=== PATIENT | male | born 1955 | race Caucasian/White ===

== ENCOUNTER 2022-04-27 14:25 | Outpatient (CLI) | payer BC, SELFPAY ==
[2022-04-27 13:21] LABS: Chloride* 104 mmol/L (96-114)
[2022-04-27 13:22] LABS: Potassium* 4.3 mmol/L (3.6-5.1); Sodium* 135 mmol/L (135-149)
[2022-04-27 13:24] LABS: Alkaline Phosphatase* 33 U/L (40-150); Aspartate Amino Transferase* 24 U/L (12-35); Blood Urea Nitrogen* 15 mg/dL (7-30); Carbon Dioxide* 27 mmol/L (20-32); Cholesterol* 148 mg/dL (90-199); Creatinine* 0.8 mg/dL (0.5-1.5); Estimated Glomerular Filt Rate 98.83; Glucose* 105 mg/dL (60-115); Total Protein* 6.2 g/dL (6.0-8.3); Triglycerides* 65 mg/dL (40-149)
[2022-04-27 13:25] LABS: Alanine Aminotransferase* 23 U/L (4-50); Calcium* 8.8 mg/dL (8.4-10.6); HDL Cholesterol* 66 mg/dL (>=40); LDL Cholesterol Calculated 69 mg/dL (<100)
[2022-04-27 13:46] LABS: Vitamin D 25 Hydroxy* 31 ng/mL (30-80)
[2022-05-03 17:18] LABS: PSA Screen* 0.52 ng/mL (0.10-4.00)
[2022-05-03 17:22] LABS: Ferritin* 11.8 ng/mL (17.9-464.0)
[2022-05-03 17:37] LABS: Vitamin B12* 386 pg/mL (243-894)
== END 2022-04-27 14:26 | disposition home or self-care (01) ==
PROVIDERS: PCP Family Medicine; Visit Provider Family Medicine
DX: Z00.00 Encounter for general adult medical examination without abnormal findings (principal); E55.9 Vitamin D deficiency, unspecified; I10 Essential (primary) hypertension; D64.9 Anemia, unspecified; F41.9 Anxiety disorder, unspecified; N52.9 Male erectile dysfunction, unspecified; Z79.1 Long term (current) use of non-steroidal anti-inflammatories (NSAID)
CPT/HCPCS: 80053; 80061; 82306; 82607; 82728; 84153

== ENCOUNTER 2022-07-23 14:19 | Outpatient (CLI) | payer BC, SELFPAY ==
--- OUTSIDE RECORDS SUMMARY | 2022-07-23 10:00 | XMS_ITS | Clinical Summary ---
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 docosahexanoic Take 1 capsule by 0 12/26/2011 Active acid-eicosapent mouth once daily. (MAXEPA; FISH OIL) capsule multivitamin (MVI) Take 1 tablet by 0 03/05/2013 Active tablet mouth once daily. turmeric root extract Take 1,000 mg by 0 06/03/2018 Active 500 mg cap mouth once daily. Garlic cap Take 1 capsule by 0 06/03/2018 Active mouth 2 times daily. Kyolic; 600 mg. rosuvastatin (CRESTOR) Take 1 tablet by 90 tablet 3 06/03/2018 Active 20 mg mouth at bedtime. tabletIndications: Hyperlipidemia, unspecified hyperlipidemia type lisinopriL (PRINIVIL; Take 0.5 Tablets 0 02/23/2021 Active ZESTRIL) 20 mg tablet (10 mg) by mouth once daily. tadalafiL (CIALIS) 5 Take by mouth once 0 10/31/2020 Active mg tablet daily. aspirin enteric coated Take 1 Tablet (325 90 Tablet 3 02/24/20 21 Active (ECOTRIN) 325 mg mg) by mouth once tabletIndications: daily with a meal. Coronary artery disease involving [place] and [place] coronary artery, unspecified whether angina present, unspecified whether [place] and [place] or transplanted heart Active Problems Problem Noted Date Sensorineural hearing loss, bilateral 04/07/2018 Personal history of colonic polyps 12/22/2013 Overview: Colonoscopy 11/2013 hyperplastic polyp re peat in 5 years Tachycardia, unspecified 11/23/2011 Arrhythmia 11/23/2011 Palpitations 11/23/2011 ABNORMAL CTA, 10/27 Overview: CALCIUM SCORE 375= 95TH PERCENTILE STRESS ECHO 10/27: 1. Exercise tolerance is 13:06 on the Br uce protocol to a peak HR of 105% predicted and a peak blood pressure of 192. 2. Symptoms of fatigue. 3. Resting 12 Lead ECG: Sinus rhythm, ri ght axis deviation and nonspecific conduction delay. 4. Stress ECG: No significant ST change. 5. Rest perfusion: normal. 6. Stress perfusion: normal. 7. LVEF normal at 59% HYPERLIPIDEMIA, MILD CAD (coronary artery disease) Overview: -CT coronary angiogram showing non-obst ructive CAD 10/2006 -Myocardial perfusion scan 11/14/2011 no rmal Atrial fibrillation Overview: -Fall 2010 paroxysms of afib with assoc iated fatigue and exercise intolerance -Flecainide ineffective and lower doses and not tolerated at higher doses -05/20/2012 complex afib/flutter ablatio n with Dr. Shepherd -05/26/2012, recurrent arrhythmia startin g 05/25/2012, presents for DCCV -s/p complex radiofrequency ablation fo r atrial fibrillation 09/30/2012 Encounters Date Type Specialty Care Team Description 05/03/2022 Telephone Noe Aranda [facility] Hearing Aid 05/01/2022 Office Visit Noe Ar[facility] 05/01/2022 Travel from Last 3 Months Family History Medical History Relation Name Comments Hyperlipidemia Brother 1 Hypertension Brother 2 Heart Disease Father [place] at age 65-70, of liver disease at age 74 Heart Disease Mother 7-8 stents, vasc ular surgery, mild [place], atrial fib Good Health Son x3 Relation Name Status Comments Brother 1 Brother 2 Father Mother Son Social History Tobacco Use Types Packs/Day Years Used Date Never Smoker Smokeless Tobacco: Never Used Tobacco Cessation: Counseling Given: Yes Alcohol Use Standard Drinks/Week Comments Yes 0 (1 standard drink = 0.6 oz pure alcoho l) 2-3 glasses of wine daily Alcohol Habits Answer Date Recorded How often do you have a drink containing Not asked alcohol? How many drinks containing alcohol do you Not asked have on a typical day when you are drinking? How often do you have six or more drinks on Not asked one occasion? 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 Respiratory Rate 16 06/03/2018 9:52 AM CDT Oxygen Saturation 98% 02/23/2021 8:57 AM CDT Inhaled Oxygen Concentration - - Weight 101.9 kg (224 lb 9.6 oz) 02/23/2021 8:57 AM CDT Height 182.9 cm (6') 02/23/2021 8:57 AM CDT Body Mass Index 30.46 02/23/2021 8:57 AM CDT Plan of Treatment Health Maintenance Due Date Last Done Comments COVID-19 vaccine series (#1) [birth year]07/1956 Tdap 1968 Depression screening for age 12+ 1969 Hepatitis C screening for age 18-79 1975 Tetanus booster 1977 Zoster (shingles) series for age 50+ (1 of 2007 2) Lipids for age 45-75 03/09/2013 03/09/2008 Colonoscopy through age 75 12/15/2018 12/15/2013, 4 BMI (ht and wt on same day) for age 18+ 02/23/2022 02/24/20 21, 06/03/2018 Influenza for age 65+ 2022 Pneumococcal series for age 65+ (1 - PCV) 2022 Results Not on filefrom Last 3 Months Insurance Payer Benefit Plan / Subscriber ID Effective Dates Phone Addre ss Type Group [employer]UE [employer] [place] [id number] 2016-Present [address] [place] [address] (Work) [id number] [address] [employer] 1955 [id number] [phone] [place], [place] (Work) [phone] Advance Directives Latest Code Status on File Code Status Date Activated Date Inactivated Comments Full Code 09/30/2012 6:58 AM 10/01/2012 12:59 PM Full Code 09/01/2012 8:15 AM 09/01/2012 8:04 PM Full Code 08/14/2012 1:41 PM 08/14/2012 6:34 PM Full Code 05/26/2012 12:48 PM 05/26/2012 6:51 PM Full Code 05/20/2012 6:52 AM 05/21/2012 3:25 PM 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
== END 2022-07-23 14:20 | disposition home or self-care (01) ==
PROVIDERS: PCP Family Medicine; Visit Provider Family Medicine
DX: D64.9 Anemia, unspecified (principal)
CPT/HCPCS: 82728

== ENCOUNTER 2023-06-06 07:32 | Outpatient (CLI) | payer BC, SELFPAY | END 2023-06-06 07:33 | disposition home or self-care (01) | LOC: NFLDREF 11:28 | PROVIDERS: PCP Family Medicine; Referring Provider Family Medicine; Visit Provider Family Medicine | DX: I10 Essential (primary) hypertension (principal); D64.9 Anemia, unspecified; E78.5 Hyperlipidemia, unspecified; E55.9 Vitamin D deficiency, unspecified; Z12.5 Encounter for screening for malignant neoplasm of prostate | CPT/HCPCS: 80053; 80061; 82306; 82728; 84153 ==

== ENCOUNTER 2023-10-01 07:49 | Outpatient (CLI) | payer BC, SELFPAY ==
[2023-10-01 09:27] VITALS: BP 130/72; PULSE 84; RESP 18
--- NOTE | 2023-10-01 13:38 | W.PM.STED ---
Stress Test Note Date Date of test: 10/01/23 Providers Primary care provider: Alisson Mcdonald Stress test physician: Erich Patrick Stress Test Note Stress test ordered: Stress Myoview Indication for test: CAD Results discussion: This pleasant patient presents for the above test after discussion the risks benefits and side effects he would like to proceed. Cardiac stress test medical history form is reviewed entirely. Pretest EKG shows normal sinus rhythm, ventricular rate is 69, blood pressure 102/70. No acute ST wave changes are noted. Normal Romain protocol is employed over a 9 minute. , he achieved a metabolic equivalent of 10.5 Mets. Test is terminated because of mode of call. During this test there was no appreciable ST wave changes suggestive of ischemia. He had no other complaints. Impression: Negative electrographic portion walking Myoview test. Follow up suggested: Await nuclear images clinical correlation with these will be needed. Patient left this testing facility back to baseline, with no complaints.
== END 2023-10-01 07:50 | disposition home or self-care (01) ==
LOC: STRESS 07:49
PROVIDERS: PCP Family Medicine; Visit Provider Family Medicine
DX: I25.10 Atherosclerotic heart disease of native coronary artery without angina pectoris (principal)
CPT/HCPCS: 78452; 93016; 93017; A9500

== ENCOUNTER 2024-01-08 10:50 | Outpatient (REF) | payer BC, SELFPAY ==
[2024-01-08 11:16] LABS: Cholesterol* 128 mg/dL (90-199)
[2024-01-08 11:17] LABS: HDL Cholesterol* 69 mg/dL (>=40); LDL Cholesterol Calculated 46 mg/dL (<100); Triglycerides* 64 mg/dL (40-149)
== END 2024-01-08 10:51 | disposition home or self-care (01) ==
LOC: NPINS 10:50
PROVIDERS: PCP Family Medicine; Visit Provider Internal Medicine
DX: E78.5 Hyperlipidemia, unspecified (principal)
CPT/HCPCS: 80061

== ENCOUNTER 2024-06-18 07:55 | Outpatient (CLI) | payer BC, SELFPAY ==
--- OUTSIDE RECORDS SUMMARY | 2024-06-20 05:36 | XMS_ITS | Clinical Summary ---
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 0 Active docosahexanoic acid-eicosapent (MAXEPA; FISH OIL) capsule Take 1 capsule by mouth once daily. 0 12/26/2011 Active multivitamin (MVI) tablet Take 1 tablet by mouth once daily. 0 03/05/2013 Active Garlic cap Take 1 capsule by mouth 2 times daily. Kyolic; 600 mg. 0 06/03/2018 Active rosuvastatin (CRESTOR) 20 mg tabletIndications:Hy perlipidemia, unspecified hyperlipidemia type Take 1 tablet by mouth at bedtime. 90 tablet 3 06/03/2018 Active tadalafiL (CIALIS) 5 mg tablet Take by mouth once daily. 10/31/2020 Active lisinopriL (PRINIVIL; ZESTRIL) 10 mg tablet Take 1 Tablet (10 mg) by mouth once daily. 10/24/2022 Active ezetimibe (Zetia) 10 mg tabletIndications:Hy perlipidemia, unspecified hyperlipidemia type Take 1 Tablet (10 mg) by mouth once daily. 90 Tablet 3 10/11/2023 Active Eliquis 5 mg tabletIndications:YOANDY F (paroxysmal atrial fibrillation) (HC) TAKE 1 TABLET(5 MG) BY MOUTH TWICE DAILY 180 Tablet 3 10/15/2023 Active semaglutide, weight loss, (Wegovy) 1 mg/0.5 mL subcutaneous penIndications:Obesi ty, unspecified classification, unspecified obesity type, unspecified whether serious comorbidity present,Coronary artery disease, unspecified vessel or lesion type, unspecified whether angina present, unspecified whether [place] or transplanted heart Inject 1 mg subcutaneous once weekly. 2 mL 5 03/20/2024 Active Active Problems Problem Noted Date Diagnosed Date Sensorineural hearing loss, bilateral 04/07/2018 Personal history of colonic polyps 12/22/2013 Overview: Colonoscopy 11/2013 hyperplastic polyp repeat in 5 years Tachycardia, unspecified 11/23/2011 Arrhythmia 11/23/2011 Palpitations 11/23/2011 ABNORMAL CTA, 10/27 Overview: CALCIUM SCORE 375= 95TH PERCENTILE STRESS ECHO 10/27: 1. Exercise tolerance is 13:06 on the Romain protocol to a peak HR of 105% predicted and a peak blood pressure of 192. 2. Symptoms of fatigue. 3. Resting 12 Lead ECG: Sinus rhythm, right axis deviation and nonspecific conduction delay. 4. Stress ECG: No significant ST change. 5. Rest perfusion: normal. 6. Stress perfusion: normal. 7. LVEF normal at 59% HYPERLIPIDEMIA, MILD CAD (coronary artery disease) Overview: -CT coronary angiogram showing non-obstructive CAD 10/2006 -Myocardial perfusion scan 11/14/2011 normal Atrial fibrillation Overview: -Fall 2010 paroxysms of afib with associated fatigue and exercise intolerance -Flecainide ineffective and lower doses and not tolerated at higher doses -05/20/2012 complex afib/flutter ablation with Dr. Shepherd -05/26/2012, recurrent arrhythmia starting 05/25/2012, presents for [facility] -s/p complex radiofrequency ablation for atrial fibrillation 09/30/2012 Family History Medical History Relation Name Comments Hyperlipidemia Brother 1 Hypertension Brother 2 Heart Disease Father [place] at age 65-7 0, of liver disease at age 74 Heart Disease Mother 7-8 stents, va scular surgery, mild [place], atrial fib Good Health Son x3 Relation Name Status Comments Brother 1 Brother 2 Father Mother Son Social History Tobacco Use Types Packs/Day Years Used Date Smoking Tobacco: Never Smokeless Tobacco: Never Tobacco Cessation:Counseling Given: Yes Alcohol Use Standard Drinks/Week Comments Yes 0 (1 standard drink = 0.6 oz pur e alcohol) 2-3 glasses of wine daily Social Connections Answer Date Recorded Frequency of Communication with Friends and Fami ly Not on file 10/21/2021 Financial Resource Strain Answer Date R ecorded Difficulty of Paying Living Expenses Not on file 10/21/2021 Difficulty of Paying Living Expenses Not on file 10/21/2021 Sex and Gender Information Value Date Recorded Sex Assigned at Not on file Gender Identity Not on file Sexual Orientation Not on file Obstetrics History Last Filed Vital Signs Vital Sign Reading Time Taken Comments Blood Pressure 122/80 10/26/2022 8:30 AM 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 VALVER Pulse 76 10/26/2022 8:30 AM [facility]AG [facility] Temperature 36.7 ??C (98.1 ??F) 12/28/2016 2:58 PM CS T Respiratory Rate 16 06/03/2018 9:52 AM CDT Oxygen Saturation 99% 10/26/2022 8:30 AM BAG VALVER Inhaled Oxygen Concentration - - Weight 90.7 kg (200 lb) 04/17/2024 1:00 PM CDT p t reported Height 182.9 cm (6' 0.01) 12/25/2023 11:[address] Body Mass Index 27.12 12/25/2023 11:00 AM BAG [facility] Plan of Treatment Health Maintenance Due Date Last Done Comments Tdap 1968 Depression screening for age 12+ 1969 Hepatitis C screening for ag e 18-79 1975 Tetanus booster 1977 Zoster (shingles) series for age 50+ (1 of 2) 2007 Colonoscopy through age 75 12/15/2018 12/15/2013, Pneumococcal series for age 65+ (1 of 1 - PCV) 2022 COVID-19 vaccine series (2022- season) 2023 08/14/2023, 07/27/2022, 05/07/2022, Additional history exists Influenza for age 65+ 06/21/2024 BMI (ht and wt on same day) for age 18+ 12/24/2024 12/25/2023, 10/26/2022, 02/23/2021, Additional history exists Lipids for age 45-75 01/07/2029 01/08/2024, 03/09/20 08 Procedures Procedure Name Priority Date/Time Associated Diagnosis Comments LIPID PANEL Routine 01/08/2024 Hyperlipidemia, unspecified hyperlipidemia type from Last 3 Months or Most Recently Relevant to Health Maintenance Results * LIPID PANEL (01/08/2024) CHOLESTEROL,TOTAL 128 90 - 199 mg/dL TRIGLYCERIDES 64 40 - 149 mg/dL HDL CHOLESTEROL 69 40 mg/dL LDL CHOLESTEROL 46 100 mg/dL Blood BLOOD SPECIMEN / Unknown 01/08/2024 Stone Felix MD CHEMISTRY from Last 3 Months or Most Recently Relevant to Health Maintenance Advance Directives * Full Code (Latest Code Status on File) Date Activated Date Inactivated Comments 09/30/2012 6:58 AM 10/01/2012 12:59 PM * Full Code Date Activated Date Inactivated Comments 09/01/2012 8:15 AM 09/01/2012 8:04 PM * Full Code Date Activated Date Inactivated Comments 08/14/2012 1:41 PM 08/14/2012 6:34 PM * Full Code Date Activated Date Inactivated Comments 05/26/2012 12:48 PM 05/26/2012 6:51 PM * Full Code Date Activated Date Inactivated Comments 05/20/2012 6:52 AM 05/21/2012 3:25 PM Care Teams External Auditor Relationship Specialty Start Date End Date Alisson Mcdonald MD [address] [place] [address] PCP - General Family Practice 12/05/16
== END 2024-06-18 07:56 | disposition home or self-care (01) ==
LOC: NFLDREF 06-20 05:35
PROVIDERS: PCP Family Medicine; Referring Provider Family Medicine; Visit Provider Family Medicine
DX: R73.01 Impaired fasting glucose (principal); N52.9 Male erectile dysfunction, unspecified; E78.5 Hyperlipidemia, unspecified; I10 Essential (primary) hypertension; D64.9 Anemia, unspecified; E55.9 Vitamin D deficiency, unspecified; Z79.1 Long term (current) use of non-steroidal anti-inflammatories (NSAID)
CPT/HCPCS: 80053; 80061; 82248; 82306; 83615; G0103

== ENCOUNTER 2024-08-03 07:13 | Outpatient (CLI) | payer BC, SELFPAY ==
--- OUTSIDE RECORDS SUMMARY | 2024-08-03 07:16 | XMS_ITS | Clinical Summary ---
Author Organization [employer] [facility] Address [place], [place] [address] Care Team Providers Care Dye Mixer Name Role Phone Alisson Mcdonald MD Primary [...] 0 06/03/2018 Active rosuvastatin (CRESTOR) 20 mg tabletIndications:H yperlipidemia, unspecified hyperlipidemia type Take 1 tablet by mouth at bedtime. 90 tablet 3 06/03/2018 Active tadalafiL (CIALIS) 5 mg tablet Take by mouth once daily. 10/31/2020 Active lisinopriL (PRINIVIL; ZESTRIL) 10 mg tablet Take 1 Tablet (10 mg) by mouth once daily. 10/24/2022 Active ezetimibe (Zetia) 10 mg tabletIndications:H yperlipidemia, unspecified hyperlipidemia type Take 1 Tablet (10 mg) by mouth once daily. 90 Tablet 3 10/11/2023 Active Eliquis 5 mg tabletIndications:P AF (paroxysmal atrial fibrillation) (HC) TAKE 1 TABLET(5 MG) BY MOUTH TWICE DAILY 180 Tablet 3 10/15/2023 Active semaglutide, weight loss, (Wegovy) 1 mg/0.5 mL subcutaneous penIndications:Obes ity, unspecified class, unspecified obesity type, unspecified whether serious comorbidity present,Coronary artery disease, unspecified vessel or lesion type, unspecified whether angina present, unspecified whether [place] or transplanted heart Inject 1 mg subcutaneous once weekly. 2 mL 6 07/28/2024 Active semaglutide, weight loss, (Wegovy) 1 mg/0.5 mL subcutaneous penIndications:Obes ity, unspecified classification, unspecified obesity type, unspecified whether serious comorbidity present,Coronary artery disease, unspecified vessel or lesion type, unspecified whether angina present, unspecified whether [place] or transplanted heart Inject 1 mg subcutaneous once weekly. 2 mL 5 03/20/2024 07/28/20 24 Discontinu ed(Reorder (E-cancel not sent)) Active Problems Problem Noted Date Diagnosed Date Sensorineural hearing loss, bilateral 04/07/2018 Personal history of colonic polyps 12/22/2013 Overview (12/22/2013): Colonoscopy 11/2013 hyperplastic polyp repeat in 5 years Tachycardia, unspecified 11/23/2011 Arrhythmia 11/23/2011 Palpitations 11/23/2011 ABNORMAL CTA, 10/27 Overview (02/16/2007): CALCIUM SCORE 375= 95TH PERCENTILE STRESS ECHO [...] 59% HYPERLIPIDEMIA, MILD CAD (coronary artery disease) Overview (10/01/2012): -CT coronary angiogram showing non-obstructive CAD 10/2006 -Myocardial perfusion scan 11/14/2011 normal Atrial fibrillation Overview (09/30/2012): -Fall 2010 paroxysms of afib with associated fatigue and exercise intolerance -Flecainide ineffective and lower doses and not tolerated at higher doses -05/20/2012 complex afib/flutter ablation with Dr. Shepherd -05/26/2012, recurrent arrhythmia starting 05/25/2012, presents for DCCV -s/p complex radiofrequency ablation for atrial fibrillation 09/30/2012 Encounters Date Type Department Care Team Description 07/31/2024 10:00 AM CDT Office Visit [facility] [address] [place] [address] Noe Aranda, Sheri Hearing Aid 07/31/2024 Travel 07/29/2024 Travel from Last 3 Months Family History Medical History Relation Name Comments Hyperlipidemia Brother 1 Hypertension Brother 2 Heart Disease Father [place] at age 65-7 0, of liver disease at age 74 Heart Disease Mother 7-8 stents, va scular surgery, mild [place], atrial fib Good Health Son x3 Relation [...] Comments Blood Pressure 122/80 10/26/2022 8:30 AM 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 Pulse 76 10/26/2022 8:30 AM GLASS HANDLER Temperature 36.7 ??C (98.1 ??F) 12/28/2016 2:58 PM CS T Respiratory Rate 16 06/03/2018 9:52 AM CDT Oxygen Saturation 99% 10/26/2022 8:30 AM GLASS HANDLER Inhaled Oxygen Concentration - - Weight 88.5 kg (195 lb) 07/28/2024 9:00 AM CDT p t reported Height 182.9 cm (6' 0.01) 12/25/2023 11:[address] Body Mass Index 26.44 12/25/2023 11:00 AM GLASS HANDLER Plan of Treatment Health Maintenance Due Date Last Done Comments Tdap 1968 Depression screening for age 12+ 1969 Hepatitis C screening for ag e 18-79 1975 Tetanus booster 1977 Zoster (shingles) series for age 50+ (1 of 2) 2007 Colonoscopy through age 75 12/15/2018 12/15/2013, Pneumococcal series for age 65+ (1 of 1 - PCV) 2022 COVID-19 vaccine series ( season) 2024 08/14/2023, 07/27/2022, 05/07/2022, Additional history exists Influenza [...] 6:52 AM 05/21/2012 3:25 PM Care Teams Dye Mixer Relationship Specialty Start Date End Date Alisson Mcdonald MD [address] [place] [address] PCP - General Family Practice 12/05/16
--- NOTE | 2024-08-03 08:20 | W.ANESCHARGE ---
Anesthesia Charges Start Date/Time Anesthesia Start Date: 08/03/24 Anesthesia Start Time: 07:46 Stop Date/Time Anesthesia Stop Date: 08/03/24 Anesthesia Stop Time: 08:16
--- NOTE | 2024-08-03 09:25 | W.ANESCHARGE ---
Anesthesia Charges Start Date/Time Anesthesia Start Date: 08/03/24 Anesthesia Start Time: 07:46 Stop Date/Time Anesthesia Stop Date: 08/03/24 Anesthesia Stop Time: 08:16
== END 2024-08-03 07:14 | disposition home or self-care (01) ==
LOC: OP CLINIC 07:13
PROVIDERS: PCP Family Medicine; Visit Provider Internal Medicine
DX: Z12.11 Encounter for screening for malignant neoplasm of colon (principal); D12.2 Benign neoplasm of ascending colon; K57.30 Diverticulosis of large intestine without perforation or abscess without bleeding; Z80.0 Family history of malignant neoplasm of digestive organs
CPT/HCPCS: 00811; 45385; 88305; J2704

== ENCOUNTER 2024-12-22 07:57 | Outpatient (CLI) | payer BC, SELFPAY | END 2024-12-22 07:58 | disposition home or self-care (01) | LOC: NFLDREF 12-23 03:56 | PROVIDERS: PCP Family Medicine; Referring Provider Family Medicine; Visit Provider Family Medicine | DX: D64.9 Anemia, unspecified (principal); R17 Unspecified jaundice | CPT/HCPCS: 80076 ==

== ENCOUNTER 2025-06-22 07:52 | Outpatient (CLI) | payer BC, SELFPAY | END 2025-06-22 07:53 | disposition home or self-care (01) | LOC: NFLDREF 15:09 | PROVIDERS: PCP Family Medicine; Referring Provider Family Medicine; Visit Provider Family Medicine | DX: E55.9 Vitamin D deficiency, unspecified (principal); I10 Essential (primary) hypertension; E78.5 Hyperlipidemia, unspecified; R73.01 Impaired fasting glucose; M81.0 Age-related osteoporosis without current pathological fracture; Z12.5 Encounter for screening for malignant neoplasm of prostate | CPT/HCPCS: 80053; 80061; 82306; G0103 ==